=== PATIENT | female | born 1980 | race Hispanic/Latino ===

== ENCOUNTER 2018-02-08 10:41 | Day surgery (SDC) ==
[2018-02-08 11:15] VITALS: BP 132/71; TEMP 97.8
[2018-02-08 11:17] VITALS: BMI 35.8
--- NOTE | 2018-02-08 11:20 | PDOC.LDHP ---
Labor and Delivery H&P Chief complaint: other (Wants) HPI: 37 y/o at 40w1d by LMP with no care presents because she is "one day past her due date and wants to see if she's dilated." Denies VB, ctx, LOF, or decreased FM. Was seen at [facility] in [place] but they do not have records. Denies having had an ultrasound or labs drawn. ROS neg for HEENT, cv, pulm, gi, gu, neuro, psych, skin, musculoskeletal, or constitutional symptoms other than mentioned above. OB History Details: 2 prior term SVDs Current complications: other (No care) Past Medical History: None Current medications: pre- vitamins Previous surgical history: none Allergies/Adverse Reactions: Allergies Allergy/AdvReac Type Severity Reaction Status Date / Time No Known Drug Allergies Allergy Verified 02/08/18 11:13 Social history: none - Physical Exam Vital signs reviewed and normal: yes General: NAD Lungs: nonlabored breathing Abdomen: gravid Extremeties: no edema FHT: category 1 (150s, mod variability, + accels, no decels) [place] contractions every: none - Vaginal Exam cm dilated: 4 Effacement: 50% Station: -1 - OB Labs Blood type: AB RH: positive - Assessment 37 y/o at 35w6d by today's ultrasound with no e/o active labor. status reassuring with reactive NST. - Plan -: D/c home with precautions. Advised to be seen in clinic again this week. GBS collected and pending.
[2018-02-08 12:16] LABS: Hemoglobin 12.7 g/dL (12.0-16.0); Mean Corpuscular HGB CONC 33.6 g/dL (32.0-36.0); Mean Corpuscular Volume 86.3 fl (81.0-99.0); Mean Platelet Volume 8.9 fL (7.4-10.4); Platelet Count 264 thou/uL (130-400); RBC Distribution Width 12.2 % (11.5-14.5); Red Blood Cell (RBC) Count 4.37 mill/uL (4.20-5.40); White Blood Cell (WBC) Count 8.5 thou/uL (4.8-10.8)
[2018-02-08 12:34] LABS: Glucose Accucheck Confirmation 90 mg/dl (70-105)
[2018-02-08 12:37] LABS: Amphetamine Not Detected (NotDetected); Barbiturates Screen Not Detected (NotDetected); Benzodiazepine Screen Not Detected (NotDetected); Cocaine Metabolite Screen Not Detected (NotDetected); Medtox Control Line Valid? VALID (VALID); Medtox Reader # READER 1; Methadone Not Detected (NotDetected); Methamphetamine Not Detected (NotDetected); Opiate Screen Not Detected (NotDetected); Oxycodone Screen Not Detected (NotDetected); Phencyclidine (PCP) Not Detected (NotDetected); THC/Cannabinoid Screen Not Detected (NotDetected); Tricyclic Screen Not Detected (NotDetected)
[2018-02-08 12:53] LABS: Syphilis Antibody Nonreactive (Nonreactive); Syphilis Antibody Index 0.03 S/CO (<1.00 Non-Reactive)
[2018-02-08 12:54] LABS: Hep B Surf AB Non-Reactive (NonReactive)
--- NOTE | 2018-02-08 14:07 | ULT ---
ULTRASOUND OBSTETRICAL COMPLETE: HISTORY: A 37-year-old female, in third trimester of gestation, with no care, experiencing c ontractions. FINDINGS: number: Layne. lie: Vertex. Maternal cervix: Obscured. Placenta: posterior. Amniotic fluid volume: 13.5 cm heart rate: 144 bpm. The following anatomy is visualized, with no evidence of anomalies: Diaphragm, three-vessel cord, four-chamber heart, stomach, and cord insertion. The rest of the anatomy is not well visualized because of third trimester stage of . biometry: Head circumference (HC): 31.8 cm 35w 5d Biparietal diameter (BPD): 8.7 cm 35w 0d Abdominal circumference (AC): 32.8 cm 36w 5d Femur length (FL): 7.1 cm 36w 1d Average ultrasound age (AUA): 35w 6d Estimated date of confinement (EDC): 03/10/2018 Last menstrual period (LMP): 04/28/2017 Gestational age by LMP: 40w 6d Estimated weight (EFW): 2899 g, +/- 429 g (6 lbs 6 oz, +/- 15 oz). IMPRESSION: 1. Live third trimester intrauterine gestation. 2. Estimated gestational age of 35 weeks, 6 days. 3. Vertex lie. 4. Limited visualization of anatomy due to third trimester stage of . MIKAYLA Ramirez POS: [facility]
== END 2018-02-08 13:44 | disposition home or self-care (01) ==
LOC: L&D/OP 10:41
PROVIDERS: ATTEND Obstetrics & Gynecology
DX: O09.33 Supervision of pregnancy with insufficient antenatal care, third trimester (principal); O09.523 Supervision of elderly multigravida, third trimester; Z3A.35 35 weeks gestation of pregnancy; Z79.899 Other long term (current) drug therapy
CPT/HCPCS: 36415; 36416; 76805; 80306; 82947; 85027; 86706; 86762; 86780; 86850; 86900; 86901; 87081; 99284

== ENCOUNTER 2018-03-06 04:19 | Inpatient (IN) | payer SELFPAY ==
[2018-03-06] MEDS ORDERED: Carboprost 250 MCG/ML AMP IM PRN (06:43)
[2018-03-06] MEDS ORDERED: Methylergonovine 0.2 MG/ML VIAL IM PRN (06:43)
[2018-03-06] MEDS ORDERED: Lidocaine 1% (PF) 30 ML VIAL SC PRN (06:43)
[2018-03-06] MEDS ORDERED: Ibuprofen 800 MG TAB PO PRN (06:43)
[2018-03-06] MEDS ORDERED: Promethazine HCl 25 MG/ML VIAL IM PRN (06:43)
[2018-03-06] MEDS ORDERED: Ondansetron HCl/PF 4 MG/2 ML Vial IVP PRN ×2 (06:43→14:59)
[2018-03-06] MEDS ORDERED: Acetaminophen 500 MG TAB PO PRN (06:43)
[2018-03-06] MEDS ORDERED: HYDROcodone/Acetaminophen 5/325 mg Tablet PO PRN ×2 (06:43)
[2018-03-06] MEDS ORDERED: Diphenoxylate HCl/Atropine Tablet PO PRN ×2 (06:43)
[2018-03-06] MEDS ORDERED: Butorphanol Tartrate 1 MG/ML VIAL SLOW IVP PRN (06:43)
[2018-03-06] MEDS ORDERED: Misoprostol 200 MCG TAB PR PRN (06:43)
--- NOTE | 2018-03-06 06:55 | PDOC.LDHP ---
Labor and Delivery H&P Chief complaint: contractions HPI: 37 y/o at 39w6d presents with contractions. Has received no care this . Denies VB, LOF or decreased FM. ROS neg for HEENT, CV, pulm, GI, , neuro, psych, skin, musculoskeletal, or constitutional symptoms other than mentioned above. OB History Details: 2 prior term SVDs Past Medical History: None Current medications: pre- vitamins Previous surgical history: none Allergies/Adverse Reactions: Allergies Allergy/AdvReac Type Severity Reaction Status Date / Time No Known Drug Allergies Allergy Verified 03/06/18 05:06 Social history: none - Physical Exam Vital signs reviewed and normal: yes General: NAD, resting Lungs: nonlabored breathing Abdomen: gravid Extremeties: no edema (120s, mod variability, + accels, no decels) [place] contractions every: 2-3 mins - Vaginal Exam cm dilated: 6 Effacement: 75% Station: -2 - OB Labs Blood type: AB RH: positive Antibody Screen: negative RPR: negative HEPSAg: negative GBS: negative Rubella: immune - Assessment L&D Assessment: term patient in labor - Plan Plan: admit to L&D, labor augmentation if indicated, informed consent obtained, anesthesia consult for pain management (if desired)
[2018-03-06] MEDS: Lactated Ringer's 1,000 ML IV SCH ×2 (07:12→14:16)
[2018-03-06 07:26] LABS: Hemoglobin 13.5 g/dL (12.0-16.0); Mean Corpuscular HGB CONC 34.4 g/dL (32.0-36.0); Mean Corpuscular Hemoglobin 29.3 pg (27.0-31.0); Mean Corpuscular Volume 85.2 fl (81.0-99.0); Mean Platelet Volume 8.7 fL (7.4-10.4); Platelet Count 282 thou/uL (130-400); RBC Distribution Width 12.8 % (11.5-14.5); Red Blood Cell (RBC) Count 4.61 mill/uL (4.20-5.40); White Blood Cell (WBC) Count 11.1 thou/uL (4.8-10.8)
[2018-03-06 08:18] LABS: HBSAg Index 0.16 S/CO (0-0.99); HIV (1/2) Antibody/Antigen Non-Reactive (NonReactive); HIV 1/2 INDEX 0.12 S/CO (<1.00); Hep B Surf Ag Non-Reactive S/CO (NonReactive)
[2018-03-06 08:28] LABS: Syphilis Antibody Nonreactive (Nonreactive); Syphilis Antibody Index 0.03 S/CO (<1.00 Non-Reactive)
[2018-03-06] MEDS: NS / Oxytocin 40 units/1000ml 1,000 ML IV PRN ×3 (09:40→14:07)
--- NOTE | 2018-03-06 10:03 | PDOC.OPDEL ---
OB Operative/Delivery Note Delivery Dr/Surgeon: Jordy Assist: Anne ms 4 Pre-Delivery Diagnosis: active labor Procedure/Post Delivery Dx: spontaneous vaginal delivery Weeks gestation: 39 Anesthesia: none - Findings A Sex: female - 1 min: 9 - 5 min: 9 - Additional Findings/Plan Placenta delivered: spontaneous Repaired Obstetrical Laceration: none Estimated blood loss: 300 Compilations/Other Findings: none. routine controled Post delivery plan: routine recovery
[2018-03-06] MEDS ORDERED: Milk Of Magnesia 30 ML UDCUP PO PRN (14:59)
[2018-03-06] MEDS ORDERED: diphenhydrAMINE 25 MG CAP PO PRN (14:59)
[2018-03-06] MEDS ORDERED: Benzocaine/Menthol 20-0.5% 60 ML CAN TOP PRN (14:59)
[2018-03-06] MEDS ORDERED: Acetaminophen/Codeine 30-300mg Tablet PO PRN ×2 (14:59)
[2018-03-06] MEDS ORDERED: Lanolin Ointment 7 GM TUBE TOP PRN (14:59)
[2018-03-06] MEDS ORDERED: Bisacodyl 10 MG SUPP PR PRN (14:59)
[2018-03-06] MEDS ORDERED: Preparation H Ointment 28 GM TUBE PR PRN (14:59)
[2018-03-06] MEDS ORDERED: Zolpidem Tartrate 5 MG TAB PO PRN (14:59)
[2018-03-06] MEDS ORDERED: NS / Oxytocin 40 units/1000ml 1,000 ML IV SCH (15:00)
[2018-03-06 15:42] LABS: Amphetamine Not Detected (NotDetected); Barbiturates Screen Not Detected (NotDetected); Benzodiazepine Screen Not Detected (NotDetected); Cocaine Metabolite Screen Not Detected (NotDetected); Medtox Control Line Valid? VALID (VALID); Medtox Reader # READER 4; Methadone Not Detected (NotDetected); Methamphetamine Not Detected (NotDetected); Opiate Screen Not Detected (NotDetected); Oxycodone Screen Not Detected (NotDetected); Phencyclidine (PCP) Not Detected (NotDetected); THC/Cannabinoid Screen Not Detected (NotDetected); Tricyclic Screen Not Detected (NotDetected)
[2018-03-06] MEDS: Ferrous Sulfate 325 MG TAB PO SCH (17:22)
[2018-03-06] MEDS: Docusate Calcium (SURFAK) 240 MG CAP PO SCH (19:35)
[2018-03-06] MEDS: Ibuprofen 800 MG TAB PO SCH (19:35)
[2018-03-07] MEDS: Ibuprofen 800 MG TAB PO SCH ×2 (05:36→14:46)
--- NOTE | 2018-03-07 07:07 | PDOC.PP ---
Post Progress Note Post Day #: 1 PO intake tolerated: yes Flatus: yes Ambulation: yes Vital Signs (12 hours) Temp Pulse Resp BP BP 03/07/18 04:00 98.8 F 73 16 133/69 03/07/18 00:00 98.0 F 66 16 104/55 L 03/06/18 20:00 99.0 F 66 16 115/62 Weight Weight 8.113 oz - Physical Examination General: NAD Cardiovascular: no m/r/g, RRR Respiratory: clear to auscultation bilaterally Abdominal: + bowel sounds, lochia Extremities: negative homans (B) Neurological: no gross focal deficits Psychiatric: A&Ox3, normal affect Result Diagrams: 03/06/18 07:17 Additional Labs: Post Labs Blood Type AB POSITIVE 03/06/18 07:17 Hep Bs Antigen Non-Reactive S/CO (NonReactive) 03/06/18 07:17 (1) Active labor at term Code(s): [id number] - Status: Acute - Assessment/Plan doing well desires pm dc
[2018-03-07 07:57] VITALS: BP 108/61; TEMP 97.8
[2018-03-07] MEDS: Ferrous Sulfate 325 MG TAB PO SCH (08:57)
[2018-03-07] MEDS: Docusate Calcium (SURFAK) 240 MG CAP PO SCH (08:58)
[2018-03-07] MEDS ORDERED: Measles/Mumps/Rubella 10 MCG/0.5 ML VIAL SC ONE (09:00)
[2018-03-07] MEDS ORDERED: Prenatal Vitamin 1 TAB PO SCH (09:00)
[2018-03-07] MEDS ORDERED: Adacel (T-DAP) 0.5 ML VIAL IM ONE (09:00)
== END 2018-03-07 14:50 | disposition home or self-care (01) | DRG 775 ==
LOC: L&D/OP 04:19 → L&D 06:39 → 3SW 12:01 → 3SE 03-07 14:57
PROVIDERS: ADMIT Obstetrics & Gynecology; ATTEND Obstetrics & Gynecology
PROC: 10E0XZZ Delivery of Products of Conception, External Approach (ICD-10-PCS; principal; 2018-03-06)
PROC: 10907ZC Drainage of Amniotic Fluid, Therapeutic from Products of Conception, Via Natural or Artificial Opening (ICD-10-PCS; 2018-03-06)
PROC: 4A0HXCZ Measurement of Products of Conception, Cardiac Rate, External Approach (ICD-10-PCS; 2018-03-06)
PROC: 3E0234Z Introduction of Serum, Toxoid and Vaccine into Muscle, Percutaneous Approach (ICD-10-PCS; 2018-03-07)
DX: O77.0 Labor and delivery complicated by meconium in amniotic fluid (principal); Z3A.39 39 weeks gestation of pregnancy; Z37.0 Single live birth; Z23 Encounter for immunization
CPT/HCPCS: 36415; 80306; 85027; 86780; 86850; 86900; 86901; 87340; 87389; 90707; 90715; 99285; J0595; J2001; J2405